=== PATIENT | female | born 1955 | race Caucasian/White ===

== ENCOUNTER 2022-02-26 08:00 | Outpatient (CLI) | payer MEDICARE, OTHER ==
--- NOTE | 2022-02-26 18:22 | XRAY Report ---
PROCEDURE: Tib/Fib LT INDICATIONS: LEFT LOWER LEG PAIN TECHNIQUE: 2 views of the tibia and fibula were acquired. COMPARISON: None. FINDINGS: Bones: No fractures or dislocations. No suspicious bony lesions. Soft tissues: No suspicious soft tissue calcifications or masses. IMPRESSION: No fracture or dislocation. Reviewed by: Selvin Tamez MD on 02/26/2022 6:21 PM PDT Approved by: Selvin Tamez MD on 02/26/2022 6:21 PM PDT Station ID: [id number]
== END 2022-02-26 23:59 | disposition home or self-care (01) ==
LOC: DI.S 08:00
PROVIDERS: ATTEND Registered Nurse
DX: M79.662 Pain in left lower leg (principal)

== ENCOUNTER 2022-03-01 08:00 | Outpatient (CLI) | payer MEDICARE, OTHER | END 2022-03-01 23:59 | disposition home or self-care (01) | LOC: LAB.S 08:00 | PROVIDERS: ATTEND Physician Assistant | DX: L03.90 Cellulitis, unspecified (principal) | CPT/HCPCS: 87070; 87181; 87205 ==